=== PATIENT | male | born 1945 | race Caucasian/White ===

== ENCOUNTER → 2016-05-31 | Outpatient (CLI) | payer MEDICARE, OTHER | LOC: PCVCIMAG 10:36 | PROVIDERS: ATTEND Internal Medicine | DX: I65.23 Occlusion and stenosis of bilateral carotid arteries (principal) | CPT/HCPCS: 93880 ==

== ENCOUNTER → 2016-06-06 | Outpatient (CLI) | payer MEDICARE, OTHER | END | disposition home or self-care (01) | LOC: PCVCCLINIC 09:45 | PROVIDERS: ATTEND Internal Medicine | DX: I25.10 Atherosclerotic heart disease of native coronary artery without angina pectoris (principal); I77.9 Disorder of arteries and arterioles, unspecified; E78.00 Pure hypercholesterolemia, unspecified; I10 Essential (primary) hypertension | CPT/HCPCS: 93005; G0463 ==

== ENCOUNTER → 2017-06-12 | Outpatient (CLI) | payer MEDICARE, OTHER | END | disposition home or self-care (01) | LOC: PCVCIMAG 09:58 | DX: I65.23 Occlusion and stenosis of bilateral carotid arteries (principal); I10 Essential (primary) hypertension; E78.5 Hyperlipidemia, unspecified; I25.10 Atherosclerotic heart disease of native coronary artery without angina pectoris; Z87.891 Personal history of nicotine dependence; Z79.899 Other long term (current) drug therapy; Z79.82 Long term (current) use of aspirin | CPT/HCPCS: 93005; 93880; G0463 ==

== ENCOUNTER → 2018-06-04 | Outpatient (CLI) | payer MEDICARE, OTHER ==
[~2018-06-04] MED LIST: REGADENOSON 0.4 MG/5 ML DISP.SYRIN. IV ONE
--- NOTE | 2018-06-04 08:50 | PCVCIMAG ---
APPROVED REPORT Indications Stenosis Risk Factors Hypertension: Hyperlipidemia CAD Doppler Spectral Velocity Analysis PSV / EDVPSV / EDV ECA (R) 89 / 6 cm/sECA (L) 71 / 11 cm/s dICA (R) 100 / 26 cm/sdICA (L) 107 / 30 cm/s Maurice (R) 120 / 27 cm/smICA (L) 105 / 31 cm/s pICA (R) 153 / 39 cm/spICA (L) 87 / 11 cm/s Bulb (R) 69 / 16 cm/sBulb (L) 56 / 14 cm/s dCCA (R) 69 / 13 cm/sdCCA (L) 90 / 18 cm/s mCCA (R) 62 / 9 cm/smCCA (L) 103 / 18 cm/s Vert (R) 85 / 19 cm/sVert (L) 23 / 9 cm/s ICA/CCA 2.22ICA/CCA 1.19 Basic Measurements Blood Pressure: Pulses: Right Left RightLeft Brachial(Sitting) 142/23vrJq595/78mmHgTemporal Real Time B-Mode Imaging Vert. (R)AntegradeVert. (L)Antegrade Findings The right carotid bulb has moderate calcified plaque. The right proximal internal carotid artery shows 50-60% stenosis. The right common carotid artery shows no significant stenosis. The right external carotid artery shows no significant stenosis. The left carotid bulb has moderate plaque. The left proximal internal carotid artery shows 40-50% stenosis. The left common carotid artery shows no significant stenosis. The left external carotid artery shows no significant stenosis. Conclusion 1. Right internal carotid artery stenosis (50-60%) 2. Left internal carotid artery stenosis (40-50%) 3. Antegrade vertebral flow Similar to 06/2016
--- NOTE | 2018-06-04 16:48 | PCVCIMAG ---
APPROVED REPORT Imaging Protocol: Rest Tc-99m/Stress Tc-99m 1 day Study performed: 06/04/2018 08:42:47 Indication: CAD Patient Location: Out-Patient Stress Nurse: Farzana Medina RN, Keiko Marinelli RN HI Tech:Maura Villavicencio [facility] Ht: 5 ft 11 in Wt: 190 lbs BSA: 2.06 m2 HR: 59 bpm BP: 156/74 mmHg BMI: 26.4 Medical History Medical History: Hyperlipidemia, HTN, CVD, Former Smoker Medications: ASA, Carvedilol, Irbesartan, Crestor, NTG SL Allergies: Yoandy Inhibitors Cardiac Risk Factors: Age Previous Cardiac Procedures: 2001 & 2007 PCI Pretest Chest Pain Characteristics: No chest pain Exercise History: Physically active Resting Data Rest SPECT myocardial perfusion imaging was performed in supine position 45 minutes following the intravenous injection of 10 mCi of Tc-99m Sestamibi. Time of rest injection: 0840 Date: 06/04/2018 Administration Route: IV Administration Site: Right AC Exercise Stress At peak stress, the patient was injected intravenously with 33.9mCi of Tc-99m Sestamibi. Time of stress injection: 1000 Date: 06/04/2018 Administration Route: IV Administration Site: Right AC Patient continued to exercise for 1 minute(s). Gated Stress SPECT was performed 30 minutes after stress injection. The images were gated to evaluate regional wall motion and calculate left ventricular ejection fraction. Stress Test Details Stress Test: Exercise stress testing was performed using a Dean protocol. HRMax Heart Rate (APMHR): 147 bpm Resting HR: 59 bpmTarget HR (85% APMHR): 124 bpm Max HR Achieved: 136 bpm % of APMHR: 92 Recovery HR: 69 bpm HR response to stress: Normal HR response to stress BP Resting BP: 156/74 mmHg Max BP: 197/84 mmHg Recovery BP: 155/71 mmHg BP response to stress: Normal blood pressure response to stress. ECG Resting ECG: Sinus Bradycardia Stress ECG: Sinus Tachycardia ST Change: None Maximum ST Deviation: 0 mm Arrhythmia: PVC Recovery ECG: Sinus Rhythm Recovery ST Change: Normal Recovery ST Deviation: 0 mm Recovery Arrhythmia: None Clinical Reason for Termination: Maximal effort Stress Symptoms: Fatigue Exercise duration: 11 min 55 sec Exercise capacity: 13.4 METs Overall Exercise Capacity for Age: Good Scale: Active Angina Score: None Symptoms resolved during recovery. Stress ECG Conclusion ECG: Non-ischemic Clinical: Non-ischemic Diaz Treadmill Score is 11.0 which is Low risk. Study Quality Study: Good Study Data Post stress, the left ventricular ejection was 65%.. SSS: 2 SRS: 2 SDS: 1 TID = 0.84. Perfusion Small sized area of moderate reversible ischemia involving the mid/basal inferosepta left ventricle consistent with a right coronary artery distribution. Wall Motion Normal left ventricular size and function with no regional wall motion abnormalities. Nuclear Conclusion Small sized area of moderate reversible ischemia involving the mid/basal inferosepta left ventricle consistent with a right coronary artery distribution. Normal left ventricular size and function with no regional wall motion abnormalities. No change since prior study dated May 2015. Interpreted by: Manpreet Gramajo MD Electronically Approved: 06/04/2018 16:36:39 <Conclusion> ECG: Non-ischemic Clinical: Non-ischemic
== END | disposition home or self-care (01) ==
LOC: PCVCIMAG 08:16
PROVIDERS: ATTEND Internal Medicine
DX: I65.23 Occlusion and stenosis of bilateral carotid arteries (principal); I25.10 Atherosclerotic heart disease of native coronary artery without angina pectoris; E78.5 Hyperlipidemia, unspecified; I10 Essential (primary) hypertension; Z79.82 Long term (current) use of aspirin; Z87.891 Personal history of nicotine dependence
CPT/HCPCS: 78452; 93005; 93017; 93880; A9500; G0463; J2785